=== PATIENT | male | born 1940 | race African-American/Black ===

== ENCOUNTER 2018-07-31 10:54 | Day surgery (SDC) | payer OTHER, BC ==
[2018-07-30 15:14] LABS: Absolute Lymphocytes (CBC) 2.2 K/uL (0.7-4.9); Absolute Monocytes 0.7 K/uL (0.1-1.3); Absolute Neutrophil 3.7 K/uL (1.8-8.0); Basophils % 0.5 % (0-1.3); Eosinophils % 2.4 % (0-4.4); Hematocrit 40.5 % (39.6-49.0); MCH 28.2 pg (27.0-35.0); MCV 84.3 fL (80-100); MPV 7.9 fL (7.6-11.3); Monocytes % 9.8 % (3.3-12.3)
--- NOTE | 2018-07-30 15:47 | RAD REPORT ---
EXAM DESCRIPTION: RAD - Chest Pa And Lat (2 Views) - 07/30/2018 3:36 pm CLINICAL HISTORY: Preop chest, pending neck soft tissue mass removal, hypertension COMPARISON: None. TECHNIQUE: PA and lateral views of the chest were obtained. FINDINGS: The lungs are clear. Heart size is normal and central vasculature is within normal limit s. No pleural effusion or pneumothorax seen. No acute bony finding noted. No aortic abnormality. IMPRESSION: No acute cardiopulmonary process.
--- NOTE | 2018-07-31 05:48 | EKG ---
Test Date: 2018-07-30 Test Time: 15:08:57 System Operator: JEFFY MEASUREMENT RESULTS: Intervals: Rate: 74 OR: 136 QRSD: 156 QT: 456 QTc: 506 [place]: P: OR: 136 QRS: 239 T: 109 INTERPRETIVE STATEMENTS: Atrial-Ventricular Dual-Paced rhythm Abnormal ECG No previous ECG available for comparison Electronically Signed On 07-31-18 05:48:03 PAPER SEALER by Skip Salazar
[2018-07-31] MEDS ORDERED: Ringers Lactate 1,000 ML IV ONE (11:27)
[2018-07-31] MEDS ORDERED: CEFAZOLIN 1GM (PREMIX IV) 1 GM/50 ML BAG ONE (11:27)
[2018-07-31] MEDS ORDERED: MIDAZOLAM HCL 2 MG/2 ML INJ ONE (12:05)
[2018-07-31] MEDS ORDERED: LIDOCAINE 2% MPF 5 ML VIAL ONE (12:16)
[2018-07-31] MEDS ORDERED: PROPOFOL 200 MG/20 ML VIAL IV ONE (12:16)
[2018-07-31] MEDS ORDERED: FENTANYL CITR 100 MCG/2 ML ONE (12:16)
[2018-07-31] MEDS ORDERED: EPHEDRINE SULF 50 MG/10 ML SYR ONE (12:56)
[2018-07-31] MEDS ORDERED: KETOROLAC 30 MG/ML INJ ONE (13:05)
[2018-07-31] MEDS ORDERED: ONDANSETRON 4 MG/2 ML VIAL ONE (13:38)
[2018-07-31] MEDS ORDERED: HYDROCODONE/APAP 7.5/325 MG TAB ONE (15:31)
--- NOTE | 2018-08-01 00:57 | OP ---
Date of Procedure: 07/31/2018 Surgeon: Joel Benitez MD Preoperative Diagnosis: Sebaceous cyst, posterior neck. Postoperative Diagnosis: Sebaceous cyst, posterior neck. Procedure: Wide excision, posterior neck mass, 5 x 3 cm, with layered closure. Estimated Blood Loss: Minimal. Specimen: Posterior neck mass. Findings: Sebaceous cyst. Anesthesia: General. Complications: None. Disposition: The patient tolerated the procedure in stable condition and taken to recovery in good g eneral condition. Procedure In Detail: The patient was brought to the OR and placed in supine position. General anest hesia was begun. The patient was placed in left lateral position, prepped and draped in the usual st erile fashion. Marcaine 0.5% was infiltrated locally and a 15-blade was used to make a 5 x 3 cm inci justine. Subcutaneous tissue was divided and then the entire sebaceous cyst sac was excised and sent to Pathology as a specimen, down through the deep part of the subcutaneous tissue. Wound was irrigated . Bleeding was controlled with cautery. The subcutaneous tissue was reapproximated with 2-0 chromic and skin was closed with interrupted 3-0 nylon. Sterile dressing was applied. The patient was awak ened and taken to recovery in good general condition. Discharge Note: The patient will go to day surgery and home when stable. Disposition: Home. Condition: Stable. Discharge Instructions: Resume home meds and diet. Activity as tolerated. No heavy lifting. Remov e outer dressing in 2 days. Shower. Keep wound clean and dry. Follow up in my office in 2 weeks. Call for appointment. Tylenol No. 3, 1 tablet p.o. q.4 p.r.n. pain. The patient already has antibio tics. /MODL Voice ID: [id number] Report ID: [id number]
== END 2018-07-31 15:46 | disposition home or self-care (01) ==
LOC: OR 10:54
PROVIDERS: ATTEND Surgery
PROC: 0JB40ZZ Excision of Right Neck Subcutaneous Tissue and Fascia, Open Approach (ICD-10-PCS; 2018-07-31)
PROC: 0JQ40ZZ Repair Right Neck Subcutaneous Tissue and Fascia, Open Approach (ICD-10-PCS; principal; 2018-07-31 12:15)
DX: L72.0 Epidermal cyst (principal); I10 Essential (primary) hypertension; Z85.46 Personal history of malignant neoplasm of prostate; Z95.0 Presence of cardiac pacemaker
CPT/HCPCS: 11426; 12045; 36415; 71046; 80048; 85025; 88304; 93005; J0690; J2250; J2405; J2704; J3010; 88305